=== PATIENT | female | born 1985 | race Caucasian/White ===

== ENCOUNTER 2016-07-03 10:26 | Emergency (ER) | payer MEDICAID, OTHER ==
[~2016-07-03] VITALS: Ht 157.5 cm; Wt 65.5 kg
[~2016-07-03 10:26] MED LIST: ACET325T33 PO; ACET500C5 PO; AMO500 PO; AMOX1TAB10 PO; BACTDS PO; CEPH-443 PO; CIPR500T4 PO; CLOT30CR24 TOP; DOXY100T20 PO; HYDR-3498 PO; IBUP800T25 PO; NITR-58 PO; NPH10OT LEFT EAR; NPH10OT RIGHT EAR; PHEN-537 PO
[2016-07-03 10:27] VITALS: Ht 157.5 cm; Wt 65.5 kg
[2016-07-03 10:57] LABS: URINE BLOOD (Dip) POC 1+ (NEGATIVE)
[2016-07-03] MEDS ORDERED: HYDROCODONE/APAP (5/325) TAB PO ONE (11:00)
--- NOTE | 2016-07-03 11:48 | ERD ---
ER Documentation Chief Complaint Date/Time DATE: 07/03/16 TIME: 11:46 Chief Complaint dysuria x 3 days HPI 31-year-old female complains of painful urination, and urgency for the past 2 days. She states that she has had frequent urinary tract infections in the past , the last time was approximately 5 months ago. She denies any vaginal bleeding or discharge. She denies fevers, chills, nausea or vomiting. Patient reports a history of gestational diabetes only. ROS All systems reviewed and are negative except as per history of present illness. Medications Home Meds Active Scripts Phenazopyridine Hcl* (Pyridium*) 100 Mg Tab, 100 MG PO TID Y for URINARY PAIN, # 8 TAB Prov:ROBBIN HONEYCUTT PA-C 07/03/16 Metformin* (Glucophage*) 500 Mg Tab, 500 MG PO BID, #30 TAB Prov:ROBBIN HONEYCUTT PA-C 07/03/16 Cephalexin* (Keflex*) 500 Mg Capsule, 500 MG PO TID for 7 Days, CAP Prov:ROBBIN HONEYCUTT PA-C 07/03/16 Nitrofurantoin Monohyd Macrocr* (Macrobid*) 100 Mg Capsr, 100 MG PO BID for 7 Days, CAP Prov:ROBBIN HONEYCUTT PA-C 03/12/16 Acetaminophen* (Tylenol*) 325 Mg Tablet, 2 TAB PO Q8 Y for PAIN AND OR ELEVATED TEMP, #20 TAB Prov:SHARDA CLARK PA-C 02/02/16 Amoxicillin* (Amoxicillin*) 500 Mg Cap, 500 MG PO TID for 7 Days, CAP Prov:SHARDA CLARK PA-C 02/02/16 Acetaminophen* (Tylophen*) 500 Mg Capsule, 1 CAP PO Q6H Y for PAIN AND OR ELEVATED TEMP, #30 CAP Prov:TATI SZYMANSKI PA-C 12/14/15 Neomycin/Polymyxin/Hydrocort* (Cortisporin* Otic) 10 Ml Susp, 4 DROP LEFT EAR QID for 7 Days, EA Prov:BHARATI CUELLAR PA-C 10/25/15 Amox Tr/Potassium Clavulanate (Amox Tr-K Clv 875-125 Mg Tab) 1 Tab Tablet, 1 TAB PO BID, #20 TAB Prov:BHARATI CUELLAR PA-C 10/25/15 Hydrocodone Bit-Acetaminophen* ([place]*) 5-325 Mg Tab, 1 TAB PO Q6 Y for PAIN, # 7 TAB Prov:ROBBIN HONEYCUTT PA-C 10/10/15 Sulfamethoxazole-Trimethoprim* (Bactrim* DS) 800-160 Mg Tab, 1 TAB PO BID for 5 Days, TAB Prov:ROBBIN HONEYCUTT PA-C 10/10/15 Cephalexin* (Keflex*) 500 Mg Capsule, 500 MG PO QID for 5 Days, CAP Prov:ROBBIN HONEYCUTT PA-C 10/10/15 Ciprofloxacin Hcl* (Ciprofloxacin Hcl*) 500 Mg Tablet, 500 MG PO BID for 3 Days , TAB Prov:ROBBIN HONEYCUTT PA-C 03/24/15 Phenazopyridine Hcl* (Pyridium*) 100 Mg Tab, 100 MG PO TID Y for PAIN, #8 TAB Prov:ROBBIN HONEYCUTT PA-C 03/24/15 Ibuprofen* (Motrin*) 800 Mg Tab, 800 MG PO Q6H Y for PAIN AND OR ELEVATED TEMP, #30 TAB Prov:CB RAMSEY NP 01/28/15 Doxycycline Hyclate* (Doxycycline Hyclate*) 100 Mg Tablet.dr, 100 MG PO BID for 7 Days, TAB Prov:GABI FOY NP 01/05/15 Clotrimazole* (Clotrimazole* AF) 1% - 30 Gm Cream.gm., 1 APPLIC TOP BID for 7 Days, TUB Prov:GABI FOY NP 01/05/15 Amoxicillin* (Amoxicillin*) 500 Mg Cap, 500 MG PO Q8 for 30 Days, CAP Prov:SMILEY DANGELO MD 10/26/14 Neomycin/Polymyxin/Hydrocort* (Cortisporin* Otic) 10 Ml Susp, 4 DROP RIGHT EAR QID for 7 Days, EA Prov:SMILEY DANGELO MD 10/26/14 Hydrocodone Bit-Acetaminophen* ([place]*) 5-325 Mg Tab, 1 TAB PO Q6 Y for PAIN, # 20 TAB Prov:SMILEY DANGELO MD 10/26/14 Allergies Allergies: Coded Allergies: naproxen (Unverified Allergy, Unknown, RASH, 07/03/16) PMhx/Soc History of Surgery: Yes (Removal of Ovarian Cyst) Anesthesia Reaction: No Hx Neurological Disorder: No Hx Respiratory Disorders: Yes (Asthma) Hx Cardiac Disorders: Yes (Preeclampsia x7 Years ago) Hx Psychiatric Problems: No Hx Miscellaneous Medical Probl: Yes (GESTATIONAL DIABETES) Hx Alcohol Use: No Hx Substance Use: No Hx Tobacco Use: No Smoking Status: Never smoker Physical Exam Vitals Vital Signs Date Time Temp Pulse Resp B/P Pulse Ox O2 Delivery O2 Flow Rate FiO2 07/03/16 13:17 98.2 78 18 112/67 98 Room Air 07/03/16 10:27 98.9 88 18 101/72 96 Physical Exam General: Well-developed, well-nourished. The patient appears in no acute distress. HEENT: Head is normocephalic, atraumatic. No scleral icterus. Neck: Supple. Nontender. Lungs: Clear to auscultation. Normal air movement. Heart: Regular rate and rhythm. S1 and S2 are normal. No murmurs, gallops, or rubs. Abdomen: Soft, nontender, nondistended. Bowel sounds are normoactive. Extremities: No clubbing or cyanosis. Normal pulses. Moving extremities x 4. No weakness. Neurologic: Alert and oriented 3. No focal deficits. Skin: Normal turgor. No rash or lesions. Result Diagram: 07/03/16 1151 07/03/16 1151 Results 24 hrs Laboratory Tests Test 07/03/16 10:57 07/03/16 11:37 07/03/16 11:50 07/03/16 11:51 Bedside Urine pH (LAB) 5.5 Bedside Urine Protein (LAB) 1+ Bedside Urine Glucose (UA) 0.50% Bedside Urine Ketones (LAB) Negative Bedside Urine Blood 1+ Bedside Urine Nitrite (LAB) Negative Bedside Urine Leukocyte Esterase (L Trace Bedside Glucose 399mg/dL Urine Color YELLOW Urine Clarity CLOUDY Urine pH 6.0 Urine Specific [place] 1.025 Urine Ketones NEGATIVE Urine Nitrite NEGATIVE Urine Bilirubin NEGATIVE Urine Urobilinogen 0.2 E.U./dL Urine Leukocyte Esterase 1+ Urine Microscopic RBC 2-5/HPF Urine Microscopic WBC 25-50/HPF Urine Epithelial Cells FEW Urine Bacteria FEW Urine Hemoglobin 1+ Urine Glucose >=1000% Urine Total Protein TRACE White Blood Count 10.910^3/ul Red Blood Count 5.2010^6/ul Hemoglobin 14.6g/dl Hematocrit 43.8% Mean Corpuscular Volume 84.2fl Mean Corpuscular Hemoglobin 28.1pg Mean Corpuscular Hemoglobin Concent 33.3g/dl Red Cell Distribution Width 12.5% Platelet Count 73937^3/UL Mean Platelet Volume 11.3fl Neutrophils % 73.9% Lymphocytes % 20.2% Monocytes % 4.6% Eosinophils % 0.6% Basophils % 0.4% Nucleated Red Blood Cells % 0.0/100WBC Neutrophils # 8.110^3/ul Lymphocytes # 2.210^3/ul Monocytes # 0.510^3/ul Eosinophils # 0.110^3/ul Basophils # 0.010^3/ul Nucleated Red Blood Cells # 0.010^3/ul Sodium Level 135mmol/L Potassium Level 4.3mmol/L Chloride Level 98mmol/L Carbon Dioxide Level 25mmol/L Anion Gap 16 Blood Urea Nitrogen 10mg/dl Creatinine 0.50mg/dl Glucose Level 439mg/dl Calcium Level 9.1mg/dl Current Medications Medications (Trade) Dose Ordered Sig/Isrrael Route PRN Reason Start Time Stop Time Status Last Admin Dose Admin Acetaminophen/ Hydrocodone Bitart ([place] (5/325)) 1 tab ONCE ONCE PO 07/03/16 11:00 07/03/16 11:01 DC 07/03/16 11:07 Procedures/MDM ER course: Accu-Chek was obtained, 399. Labs were obtained, patient does not have evidence of his diabetic ketoacidosis. Urine does show positive infection with many white blood cells. MDM: 31-year-old female presents with new onset of diabetes type 2, and urinary tract infection. Her POC glucose was obtained given that showed glucose in the urine dip and it was 399. Subsequently blood work was obtained, patient's lab work was unremarkable, and she was informed of all results. The case was reviewed and discussed with who agrees with the plan of care including labs, treatment, and advanced imaging as appropriate. She will be given Metformin and keflex, and has been asked to f/u with her pcp closely. Departure Diagnosis: Primary Impression: Acute UTI Additional Impression: Diabetes type 2, uncontrolled Condition: ROBBIN Hinton PA-C Jul 03, 2016 11:47
[2016-07-03 11:58] LABS: ADD SCAN DIFF NO
[2016-07-03 12:11] LABS: POTASSIUM 4.3 mmol/L (3.5-5.1)
[2016-07-03 12:14] LABS: CALCIUM 9.1 mg/dl (8.4-10.2); CREATININE 0.5 mg/dl (0.44-1.00)
[2016-07-03 12:25] LABS: ADD UMIC YES; URINE BILIRUBIN (Dip) NEGATIVE (NEGATIVE); URINE BLOOD (Dip) 1+ (NEGATIVE); URINE GLUCOSE (Dip) >=1000 % (NEGATIVE); URINE KETONES (Dip) NEGATIVE (NEGATIVE); URINE LEUKOCYTE ESTERASE (Dip) 1+ (NEGATIVE); URINE NITRITE (Dip) NEGATIVE (NEGATIVE); URINE TOTAL PROTEIN (Dip) TRACE (NEGATIVE); URINE UROBILINOGEN (Dip) 0.2 E.U./dL (0.1-1.0)
[2016-07-03 12:26] LABS: BASOPHILS % 0.4 % (0.0-2.0); EOSINOPHILS # 0.1 10^3/ul (0.0-0.5); EOSINOPHILS % 0.6 % (0.0-7.0); HEMATOCRIT 43.8 % (37.0-47.0); HEMOGLOBIN 14.6 g/dl (12.0-16.0); LYMPHOCYTES # 2.2 10^3/ul (0.8-2.9); LYMPHOCYTES % 20.2 % (15.0-51.0); MEAN CORPUSCULAR HEMOGLOBIN 28.1 pg (29.0-33.0); MEAN CORPUSCULAR HGB CONC 33.3 g/dl (32.0-37.0); MEAN CORPUSCULAR VOLUME 84.2 fl (82.0-101.0); MEAN PLATELET VOLUME 11.3 fl (7.4-10.4); MONOCYTE # 0.5 10^3/ul (0.3-0.9); MONOCYTES % 4.6 % (0.0-11.0); NEUTROPHIL # 8.1 10^3/ul (1.6-7.5); NEUTROPHILS % 73.9 % (39.0-77.0); PLATELET COUNT 333 10^3/UL (140-415); RED CELL DISTRIBUTION WIDTH 12.5 % (11.5-14.5); WHITE BLOOD COUNT 10.9 10^3/ul (4.8-10.8)
[2016-07-03 12:33] LABS: URINE COLOR YELLOW (YELLOW)
[2016-07-03] MEDS ORDERED: CEPH-443 PO (12:59)
[2016-07-03] MEDS ORDERED: PHEN-537 PO (12:59)
[2016-07-03] MEDS ORDERED: METF500T4 PO (12:59)
[2016-07-03 13:03] LABS: BACTERIA,URINE FEW
[2016-07-03 13:17] VITALS: BP 112/67; PULSE 78; RESP 18; TEMP 98.2
== END 2016-07-03 13:20 | disposition home or self-care (01) ==
LOC: FTE 10:26
DX: N39.0 Urinary tract infection, site not specified (principal); E11.9 Type 2 diabetes mellitus without complications; J45.909 Unspecified asthma, uncomplicated
CPT/HCPCS: 80048; 81001; 82962; 85025; Z7502; Z7610; 81003; 99284

== ENCOUNTER 2016-10-23 21:49 | Emergency (ER) | payer OTHER ==
[~2016-10-23] VITALS: Wt 66.5 kg
[~2016-10-23 21:49] MED LIST changes: +METF500T4 PO
[2016-10-24] MEDS ORDERED: ONDANSETRON 4 MG INJ IV STA ×2 (00:38→01:51)
[2016-10-24] MEDS ORDERED: morphine 4 MG/ML VIAL IV STA ×2 (00:38→02:08)
[2016-10-24] MEDS ORDERED: SOD CHLORIDE 0.9% 1,000 ML IV STA (00:38)
--- NOTE | 2016-10-24 00:53 | ERD ---
ER Documentation Chief Complaint Date/Time DATE: 10/24/16 TIME: 00:50 Chief Complaint Epigastric Pain since yesterday with vomiting HPI This is a 31-year-old female presents to the emergency department today complaining of abdominal pain and persistent vomiting since yesterday. She has some dysuria and some diarrhea. Denies any fevers or chills. ROS All systems reviewed and are negative except as per history of present illness. Medications Home Meds Active Scripts Acetaminophen* (Tylophen*) 500 Mg Capsule, 1 CAP PO Q6H Y for PAIN AND OR ELEVATED TEMP, #30 CAP Prov:TATI SZYMANSKI PA-C 10/24/16 Omeprazole* (Omeprazole*) 20 Mg Capsule.dr, 20 MG PO DAILY, #14 Prov:TATI SZYMANSKI PA-C 10/24/16 Electrolyte,Oral (Pedialyte) 1,000 Ml Solution, 100 ML PO Q6 Y for VOMITTING, # 1000 ML Prov:TATI SZYMANSKI PA-C 10/24/16 Ondansetron Hcl* (Zofran*) 4 Mg Tablet, 4 MG PO Q6H for NAUSEA AND/OR VOMITING, #30 TAB Prov:TATI SZYMANSKI PA-C 10/24/16 Phenazopyridine Hcl* (Pyridium*) 100 Mg Tab, 100 MG PO TID Y for URINARY PAIN, # 8 TAB Prov:ROBBIN HONEYCUTT PA-C 07/03/16 Metformin* (Glucophage*) 500 Mg Tab, 500 MG PO BID, #30 TAB Prov:ROBBIN HONEYCUTT PA-C 07/03/16 Cephalexin* (Keflex*) 500 Mg Capsule, 500 MG PO TID for 7 Days, CAP Prov:ROBBIN HONEYCUTT PA-C 07/03/16 Nitrofurantoin Monohyd Macrocr* (Macrobid*) 100 Mg Capsr, 100 MG PO BID for 7 Days, CAP Prov:ROBBIN HONEYCUTT PA-C 03/12/16 Acetaminophen* (Tylenol*) 325 Mg Tablet, 2 TAB PO Q8 Y for PAIN AND OR ELEVATED TEMP, #20 TAB Prov:SHARDA CLARK PA-C 02/02/16 Amoxicillin* (Amoxicillin*) 500 Mg Cap, 500 MG PO TID for 7 Days, CAP Prov:SHARDA CLARK PA-C 02/02/16 Acetaminophen* (Tylophen*) 500 Mg Capsule, 1 CAP PO Q6H Y for PAIN AND OR ELEVATED TEMP, #30 CAP Prov:TATI SZYMANSKI PA-C 12/14/15 Neomycin/Polymyxin/Hydrocort* (Cortisporin* Otic) 10 Ml Susp, 4 DROP LEFT EAR QID for 7 Days, EA Prov:BHARATI CUELLAR PA-C 10/25/15 Amox Tr/Potassium Clavulanate (Amox Tr-K Clv 875-125 Mg Tab) 1 Tab Tablet, 1 TAB PO BID, #20 TAB Prov:BHARATI CUELLAR PA-C 10/25/15 Hydrocodone Bit-Acetaminophen* ([place]*) 5-325 Mg Tab, 1 TAB PO Q6 Y for PAIN, # 7 TAB Prov:ROBBIN HONEYCUTT PA-C 10/10/15 Sulfamethoxazole-Trimethoprim* (Bactrim* DS) 800-160 Mg Tab, 1 TAB PO BID for 5 Days, TAB Prov:ROBBIN HONEYCUTT PA-C 10/10/15 Cephalexin* (Keflex*) 500 Mg Capsule, 500 MG PO QID for 5 Days, CAP Prov:ROBBIN HONEYCUTT PA-C 10/10/15 Ciprofloxacin Hcl* (Ciprofloxacin Hcl*) 500 Mg Tablet, 500 MG PO BID for 3 Days , TAB Prov:ROBBIN HONEYCUTT PA-C 03/24/15 Phenazopyridine Hcl* (Pyridium*) 100 Mg Tab, 100 MG PO TID Y for PAIN, #8 TAB Prov:ROBBIN HONEYCUTT PA-C 03/24/15 Ibuprofen* (Motrin*) 800 Mg Tab, 800 MG PO Q6H Y for PAIN AND OR ELEVATED TEMP, #30 TAB Prov:CB RAMSEY NP 01/28/15 Doxycycline Hyclate* (Doxycycline Hyclate*) 100 Mg Tablet.dr, 100 MG PO BID for 7 Days, TAB Prov:GABI FOY NP 01/05/15 Clotrimazole* (Clotrimazole* AF) 1% - 30 Gm Cream.gm., 1 APPLIC TOP BID for 7 Days, TUB Prov:GABI FOY NP 01/05/15 Amoxicillin* (Amoxicillin*) 500 Mg Cap, 500 MG PO Q8 for 30 Days, CAP Prov:SMILEY DANGELO MD 10/26/14 Neomycin/Polymyxin/Hydrocort* (Cortisporin* Otic) 10 Ml Susp, 4 DROP RIGHT EAR QID for 7 Days, EA Prov:SMILEY DANGELO MD 10/26/14 Hydrocodone Bit-Acetaminophen* ([place]*) 5-325 Mg Tab, 1 TAB PO Q6 Y for PAIN, # 20 TAB Prov:SMILEY DANGELO MD 10/26/14 Allergies Allergies: Coded Allergies: naproxen (Unverified Allergy, Unknown, RASH, 07/03/16) PMhx/Soc History of Surgery: Yes (Removal of Ovarian Cyst) Anesthesia Reaction: No Hx Neurological Disorder: No Hx Respiratory Disorders: Yes (Asthma) Hx Cardiac Disorders: Yes (Preeclampsia x7 Years ago) Hx Psychiatric Problems: No Hx Miscellaneous Medical Probl: Yes (GESTATIONAL DIABETES) Hx Alcohol Use: No Hx Substance Use: No Hx Tobacco Use: No Physical Exam Vitals Vital Signs Date Time Temp Pulse Resp B/P Pulse Ox O2 Delivery O2 Flow Rate FiO2 10/23/16 22:00 97.3 87 20 101/64 99 Physical Exam Const: Obese, no acute distress Head: Atraumatic Eyes: Normal Conjunctiva ENT: Normal External Ears, Nose and Mouth. Neck: Full range of motion..~ No meningismus. Resp: Clear to auscultation bilaterally Cardio: Regular rate and rhythm, no murmurs Abd: Soft, epigastric right upper quadrant tenderness, non distended. Normal bowel sounds no tenderness [place] Skin: No petechiae or rashes Back: No midline or flank tenderness Ext: No cyanosis, or edema Neur: Awake and alert Psych: Normal Mood and Affect Result Diagram: 10/24/1610410/24/16 010 Results 24 hrs Laboratory Tests Test 10/24/16 01:00 10/24/16 01:05 10/24/16 02:52 Urine Color YELLOW Urine Clarity SLIGHTLY CLOUDY Urine pH 5.0 Urine Specific [place] 1.036 Urine Ketones 2+mg/dL Urine Nitrite NEGATIVEmg/dL Urine Bilirubin NEGATIVEmg/dL Urine Urobilinogen 1+mg/dL Urine Leukocyte Esterase NEGATIVELeu/ul Urine Microscopic RBC 0/HPF Urine Microscopic WBC 2/HPF Urine Squamous Epithelial Cells FEW/HPF Urine Mucus MODERATE/HPF Urine Hemoglobin NEGATIVEmg/dL Urine Glucose 3+mg/dL Urine Total Protein 1+mg/dl White Blood Count 10.310^3/ul Red Blood Count 4.9910^6/ul Hemoglobin 14.3g/dl Hematocrit 41.2% Mean Corpuscular Volume 82.6fl Mean Corpuscular Hemoglobin 28.7pg Mean Corpuscular Hemoglobin Concent 34.7g/dl Red Cell Distribution Width 12.4% Platelet Count 25388^3/UL Mean Platelet Volume 11.2fl Neutrophils % 73.6% Lymphocytes % 21.6% Monocytes % 4.1% Eosinophils % 0.2% Basophils % 0.2% Nucleated Red Blood Cells % 0.0/100WBC Neutrophils # 7.610^3/ul Lymphocytes # 2.210^3/ul Monocytes # 0.410^3/ul Eosinophils # 0.010^3/ul Basophils # 0.010^3/ul Nucleated Red Blood Cells # 0.010^3/ul Sodium Level 142mmol/L Potassium Level 3.7mmol/L Chloride Level 98mmol/L Carbon Dioxide Level 26mmol/L Anion Gap 22 Blood Urea Nitrogen 9mg/dl Creatinine 0.51mg/dl Glucose Level 270mg/dl Calcium Level 9.5mg/dl Total Bilirubin 0.6mg/dl Direct Bilirubin 0.00mg/dl Indirect Bilirubin 0.6mg/dl Aspartate Amino Transf (AST/SGOT) 32IU/L Alanine Aminotransferase (ALT/SGPT) 58IU/L Alkaline Phosphatase 136IU/L Total Protein 8.3g/dl Albumin 4.4g/dl Globulin 3.90g/dl Albumin/Globulin Ratio 1.12 Lipase 74U/L Serum HCG, Qualitative NEGATIVE Bedside Glucose 209mg/dL Current Medications Medications (Trade) Dose Ordered Sig/Isrrael Route PRN Reason Start Time Stop Time Status Last Admin Dose Admin Sodium Chloride (NS) 1,000 ml @ 1,000 mls/hr Q1H STAT IV 10/24/16 00:38 10/24/16 01:37 DC 10/24/16 01:13 Morphine Sulfate (morphine) 4 mg ONCE STAT IV 10/24/16 00:38 10/24/16 00:41 DC 10/24/16 01:13 Ondansetron HCl (Zofran Inj) 4 mg ONCE STAT IV 10/24/16 00:38 10/24/16 00:41 DC 10/24/16 01:13 Famotidine (Pepcid) 20 mg ONCE ONCE PO 10/24/16 02:00 10/24/16 02:01 DC 10/24/16 02:11 Ondansetron HCl (Zofran Inj) 4 mg ONCE STAT IV 10/24/16 01:51 10/24/16 01:52 DC 10/24/16 02:11 Morphine Sulfate 4 mg 4 mg ONCE STAT IV 10/24/16 02:08 10/24/16 02:09 DC 10/24/16 02:11 Sodium Chloride (NS) 1,000 ml @ 1,000 mls/hr Q1H ONCE IV 10/24/16 03:00 10/24/16 03:59 DC 10/24/16 03:07 Pantoprazole (Protonix Tab) 40 mg ONCE ONCE PO 10/24/16 03:00 10/24/16 03:01 DC 10/24/16 03:06 Metoclopramide HCl (Reglan) 10 mg ONCE ONCE IV 10/24/16 04:00 10/24/16 04:01 DC 10/24/16 04:19 DIAGNOSTIC IMAGING REPORT Patient: SERAFIN SCHRADER : 1985 Age: 31 Sex: F MR #: [id number] DOS: 10/24/16 0000 Ordering MD: TATI SZYMANSKI PA-C Location: [facility] Room/Bed: PROCEDURE: ULTRASOUND LIMITED ABDOMEN CLINICAL INDICATION: 31-year-old female with abdominal pain. TECHNIQUE: Multiple sonographic of the right upper quadrant of the abdomen were obtained. The images were reviewed on a PACS workstation. COMPARISON: CT abdomen/pelvis January 28, 2015. FINDINGS: The pancreas is partially visualized and is otherwise without abnormal echogenicity. The liver displays diffuse increase echogenicity consistent with fatty infiltration. The liver measures 18.1 cm in length. No evidence of intrahepatic biliary ductal dilatation is seen. The portal and hepatic veins are unremarkable. The gallbladder demonstrates no wall thickening, sludge, nor stones. No pericholecystic fluid is seen. The common bile duct measures 2.5 mm and is not dilated. The right kidney displays normal echogenicity. The right kidney measures 11.5 cm in maximal length. No caliectasis or hydronephrosis is seen. There is an echogenic focus within the mid right kidney measuring 6 mm with questionable shadowing. No free fluid is seen. IMPRESSION: 1. Hepatic steatosis. 2. Questionable nonobstructing 6 mm right mid renal calculus. .Ernie Hogue MD, MD Date Time Electronically viewed and signed by .Ernie Hogue MD, MD on 10/24/2016 01:53 .M/ CC: TATI SZYMANSKI PA-C DIAGNOSTIC IMAGING REPORT Patient: SERAFIN SCHRADER : 1985 Age: 31 Sex: F MR #: [id number] DOS: 10/24/16 0203 Ordering MD: TATI SZYMANSKI PA-C Location: [facility] Room/Bed: PROCEDURE: CT ABDOMEN/PELVIS WITHOUT CONTRAST CLINICAL INDICATION: 31-year-old female with abdominal pain. TECHNIQUE: The study was performed utilizing a [employer] VCT 64-slice CT scanner. Direct axial sections were obtained through the abdomen and pelvis without the use of intravenous contrast material. Sagittal and coronal reformations were obtained. One or more of the following dose reduction techniques were utilized: automated exposure control, adjustment of the mA and/ or kV according to patient's size or use of iterative reconstruction technique. The images were reviewed on a PACS workstation. CTD/vol = 9.8 mGy; Total Exam DLP = 587.9 mGy-cm. COMPARISON: Right upper quadrant ultrasound October 24, 2016; CT abdomen/ pelvis January 28, 2015. FINDINGS: The lung bases are unremarkable. There is no evidence for significant pleural effusion. The liver has a normal size and contour without focal areas of abnormal density. No intrahepatic nor extrahepatic biliary ductal dilatation is seen. The gallbladder demonstrates no wall thickening nor pericholecystic fluid. No biliary stones are evident. The pancreas is without areas of abnormal attenuation. The spleen is identified and has a normal size without abnormal density. The adrenal glands are unremarkable. The kidneys are without abnormal density. No hydroureteronephrosis nor nephroureterolithiasis is evident. The urinary bladder contains urine. There is mild retained stool within the colon without obstruction. The appendix is visualized and is without abnormal thickening or surrounding inflammatory reaction. The uterus is unremarkable. There is no significant free fluid. The aortoiliac vessels are without aneurysmal dilatation. The osseous structures are intact. IMPRESSION: 1. No CT evidence for obstructive uropathy or renal calculi. 2. Mild retained stool within the colon without obstruction. 3. No CT evidence for appendicitis. .Ernie Hogue MD, MD Date Time Electronically viewed and signed by .Ernie Hogue MD, MD on 10/24/2016 02:36 .M/ CC: TATI SZYMANSKI PA-C Procedures/[facility] This a 31-year-old female who presents the emergency department today complaining of abdominal pain and vomiting that started yesterday. Upon review of patient's medical records patient was seen here in June had a significantly elevated blood glucose over 400. Patient states that she did follow-up with a primary care doctor and was told to go get regular blood work however she has not done this because she states she is homeless and has too much going on. States she is currently living in a intermediate with her son and does feel safe there. On physical exam patient had epigastric and right upper quadrant tenderness and therefore did obtain laboratory work as well as imaging Laboratory workup shows no elevated white blood cell count. She is not anemic. Platelets are within normal limits. Electrolytes are within normal limits. Bicarb is within normal limit glucose is elevated at 270. Liver enzymes are within normal limits. She is not in DKA. UA is negative for infection. There are 2+ ketones. test is negative Right upper quadrant ultrasound showed hepatic steatosis and a questionable nonobstructing stone millimeter right mid renal calculus. There is no gallbladder wall thickening, sludge or stones. There is no pericholecystic fluid. She was given morphine, Zofran and IV fluids here in the emergency department patient continued complaint nausea and pain and therefore I did obtain a CT abdomen pelvis noncontrast CT abdomen pelvis noncontrast shows no CT evidence for obstructive uropathy or renal calculi. Mild retained stool within the colon without obstruction. No CT evidence for appendicitis. Discussed the auditory and imaging findings with Dr. Lindquist and he indicated that it is possible the patient has gastroparesis given her history of diabetes. Patient was given 8 mg of morphine, Pepcid, Zofran here in the emergency department. Pain was well controlled. She did have some persistent nausea and she was therefore given more Zofran and Reglan and omeprazole. She was also given 2 L of fluids. Patient tolerated p.o. challenge prior to discharge. No evidence to suggest acute surgical abdomen. Patient symptoms at this time is consistent with abdominal pain and vomiting possibly related to gastroparesis. Lower suspicion for viral infection at this time. Patient was given a prescription for omeprazole, Tylenol, Zofran, Pedialyte. At this time the patient is stable for discharge and outpatient management. Patient should follow up with their PCP in the next 1-2 days. They may return to the emergency department sooner for any persistent or worsening of symptoms. Patient understood and agreed with the plan. Departure Diagnosis: Primary Impression: Abdominal pain Abdominal location: generalized Qualified Code: R10.84 - Generalized abdominal pain Additional Impression: Elevated blood sugar Condition: TATI Yoder PA-C Oct 24, 2016 00:53
[2016-10-24 01:21] LABS: BASOPHILS % 0.2 % (0.0-2.0); EOSINOPHILS % 0.2 % (0.0-7.0); HEMATOCRIT 41.2 % (37.0-47.0); HEMOGLOBIN 14.3 g/dl (12.0-16.0); LYMPHOCYTES # 2.2 10^3/ul (0.8-2.9); LYMPHOCYTES % 21.6 % (15.0-51.0); MEAN CORPUSCULAR HEMOGLOBIN 28.7 pg (29.0-33.0); MEAN CORPUSCULAR HGB CONC 34.7 g/dl (32.0-37.0); MEAN CORPUSCULAR VOLUME 82.6 fl (82.0-101.0); MEAN PLATELET VOLUME 11.2 fl (7.4-10.4); MONOCYTE # 0.4 10^3/ul (0.3-0.9); MONOCYTES % 4.1 % (0.0-11.0); NEUTROPHIL # 7.6 10^3/ul (1.6-7.5); NEUTROPHILS % 73.6 % (39.0-77.0); PLATELET COUNT 372 10^3/UL (140-415); RED BLOOD COUNT 4.99 10^6/ul (4.20-5.40); RED CELL DISTRIBUTION WIDTH 12.4 % (11.5-14.5); WHITE BLOOD COUNT 10.3 10^3/ul (4.8-10.8)
[2016-10-24 01:35] LABS: ADD UMIC YES; UR ASCORBIC ACID NEGATIVE (NEGATIVE); UR BILIRUBIN (Dip) NEGATIVE (NEGATIVE); UR BLOOD (Dip) NEGATIVE (NEGATIVE); UR CLARITY SLIGHTLY CLOUDY (CLEAR); UR COLOR YELLOW (YELLOW); UR GLUCOSE (Dip) 3+ mg/dL (NEGATIVE); UR KETONES (Dip) 2+ mg/dL (NEGATIVE); UR LEUKOCYTE ESTERASE (Dip) NEGATIVE Leu/ul (NEGATIVE); UR MUCUS MODERATE /HPF (NONE SEEN); UR NITRITE (Dip) NEGATIVE (NEGATIVE); UR RBC 0 /HPF (0-5); UR SPECIFIC GRAVITY (Dip) 1.036 (1.003-1.030); UR SQUAMOUS EPITHELIAL CELL FEW /HPF (FEW); UR TOTAL PROTEIN (Dip) 1+ mg/dl (NEGATIVE); UR UROBILINOGEN (Dip) 1+ mg/dL (NEGATIVE)
[2016-10-24 01:38] LABS: ALBUMIN 4.4 g/dl (3.3-4.9); ALBUMIN/GLOBULIN RATIO 1.12; BILIRUBIN,INDIRECT 0.6 mg/dl (0-1.1); BILIRUBIN,TOTAL 0.6 mg/dl (0.2-1.3); CALCIUM 9.5 mg/dl (8.4-10.2); CREATININE 0.51 mg/dl (0.44-1.00); POTASSIUM 3.7 mmol/L (3.5-5.1); TOTAL PROTEIN 8.3 g/dl (6.1-8.1)
--- NOTE | 2016-10-24 01:53 | RADRPT ---
PROCEDURE: ULTRASOUND LIMITED ABDOMEN CLINICAL INDICATION: 31-year-old female with abdominal pain. TECHNIQUE: Multiple sonographic of the right upper quadrant of the abdomen were obtained. The imag es were reviewed on a PACS workstation. COMPARISON: CT abdomen/pelvis January 28, 2015. FINDINGS: The pancreas is partially visualized and is otherwise without abnormal echogenicity. The liver displays diffuse increase echogenicity consistent with fatty infiltration. The liver measu res 18.1 cm in length. No evidence of intrahepatic biliary ductal dilatation is seen. The portal an d hepatic veins are unremarkable. The gallbladder demonstrates no wall thickening, sludge, nor stones. No pericholecystic fluid is see n. The common bile duct measures 2.5 mm and is not dilated. The right kidney displays normal echogenicity. The right kidney measures 11.5 cm in maximal length. No caliectasis or hydronephrosis is seen. There is an echogenic focus within the mid right kidney me asuring 6 mm with questionable shadowing. No free fluid is seen. IMPRESSION: 1. Hepatic steatosis. 2. Questionable nonobstructing 6 mm right mid renal calculus. .Ernie Hogue MD, Date Time Electronically viewed and signed by .Ernie Hogue MD, on 10/24/2016 01:53 .M/
[2016-10-24] MEDS ORDERED: FAMOTIDINE 20 MG TAB PO ONE (02:00)
--- NOTE | 2016-10-24 02:36 | RADRPT ---
PROCEDURE: CT ABDOMEN/PELVIS WITHOUT CONTRAST CLINICAL INDICATION: 31-year-old female with abdominal pain. TECHNIQUE: The study was performed utilizing a GE Crittercismpeed VCT 64-slice CT scanner. Direct axia l sections were obtained through the abdomen and pelvis without the use of intravenous contrast mate rial. Sagittal and coronal reformations were obtained. One or more of the following dose reduction t echniques were utilized: automated exposure control, adjustment of the mA and/or kV according to pat ient's size or use of iterative reconstruction technique. The images were reviewed on a PACS workst [employer]. CTD/vol = 9.8 mGy; Total Exam DLP = 587.9 mGy-cm. COMPARISON: Right upper quadrant ultrasound October 24, 2016; CT abdomen/pelvis January 28, 2015. FINDINGS: The lung bases are unremarkable. There is no evidence for significant pleural effusion. The liver has a normal size and contour without focal areas of abnormal density. No intrahepatic nor extrahepa tic biliary ductal dilatation is seen. The gallbladder demonstrates no wall thickening nor perichole cystic fluid. No biliary stones are evident. The pancreas is without areas of abnormal attenuation. The spleen is identified and has a normal size without abnormal density. The adrenal glands are unr emarkable. The kidneys are without abnormal density. No hydroureteronephrosis nor nephroureterolithi asis is evident. The urinary bladder contains urine. There is mild retained stool within the colon w ithout obstruction. The appendix is visualized and is without abnormal thickening or surrounding inf lammatory reaction. The uterus is unremarkable. There is no significant free fluid. The aortoiliac vessels are without aneurysmal dilatation. The osseous structures are intact. IMPRESSION: 1. No CT evidence for obstructive uropathy or renal calculi. 2. Mild retained stool within the colon without obstruction. 3. No CT evidence for appendicitis. .Ernie Hogue MD, Date Time Electronically viewed and signed by .Ernie Hogue MD, on 10/24/2016 02:36 .Eric
[2016-10-24] MEDS ORDERED: SOD CHLORIDE 0.9% 1,000 ML IV ONE (03:00)
[2016-10-24] MEDS ORDERED: PANTOPRAZOLE (EC) 40 MG TAB PO ONE (03:00)
[2016-10-24] MEDS ORDERED: METOCLOPRAMIDE 10 MG INJ IV ONE (04:00)
[2016-10-24] MEDS ORDERED: ELEC100080 PO (04:57)
[2016-10-24] MEDS ORDERED: ONDA4TAB8 PO (04:57)
[2016-10-24] MEDS ORDERED: ACET500C5 PO (04:58)
[2016-10-24] MEDS ORDERED: OMEP20CA16 PO (04:58)
== END 2016-10-24 05:11 | disposition home or self-care (01) ==
LOC: FTE 21:49
DX: R10.84 Generalized abdominal pain (principal); J45.909 Unspecified asthma, uncomplicated; R73.9 Hyperglycemia, unspecified; R11.10 Vomiting, unspecified
CPT/HCPCS: 36415; 74176; 76705; 80053; 81001; 82962; 83690; 84703; 85025; 96374; 96375; 96376; J2270; J2405; J2765; J7030; Z7502; Z7610

== ENCOUNTER 2016-11-02 20:34 | Emergency (ER) | payer OTHER ==
[~2016-11-02] VITALS: Ht 157.5 cm; Wt 67.5 kg
[~2016-11-02 20:34] MED LIST changes: -AMO500 PO; +AMOX500C2 PO; +ELEC100080 PO; +OMEP20CA16 PO; +ONDA4TAB8 PO
[2016-11-02 20:39] VITALS: Ht 157.5 cm; Wt 67.5 kg
[2016-11-02] MEDS ORDERED: ONDANSETRON 4 MG INJ IV STA (21:02)
[2016-11-02] MEDS ORDERED: SOD CHLORIDE 0.9% 1,000 ML IV STA (21:02)
[2016-11-02 21:38] LABS: URINE BLOOD (Dip) POC Trace-intact (NEGATIVE)
[2016-11-02 22:16] LABS: BASOPHILS % 0.4 % (0.0-2.0); EOSINOPHILS % 0.6 % (0.0-7.0); HEMATOCRIT 40.4 % (37.0-47.0); HEMOGLOBIN 13.9 g/dl (12.0-16.0); LYMPHOCYTES # 2.5 10^3/ul (0.8-2.9); MEAN CORPUSCULAR HEMOGLOBIN 28.6 pg (29.0-33.0); MEAN CORPUSCULAR HGB CONC 34.4 g/dl (32.0-37.0); MEAN CORPUSCULAR VOLUME 83.1 fl (82.0-101.0); MEAN PLATELET VOLUME 11.5 fl (7.4-10.4); MONOCYTE # 0.5 10^3/ul (0.3-0.9); NEUTROPHILS % 53.9 % (39.0-77.0); PLATELET COUNT 288 10^3/UL (140-415); RED BLOOD COUNT 4.86 10^6/ul (4.20-5.40); RED CELL DISTRIBUTION WIDTH 12.7 % (11.5-14.5); WHITE BLOOD COUNT 6.8 10^3/ul (4.8-10.8)
[2016-11-02] MEDS ORDERED: FAMOTIDINE 20 MG INJ IV ONE (22:30)
[2016-11-02] MEDS ORDERED: LIDOCAINE/MYLANTA 40 ML BTL PO ONE (22:30)
[2016-11-02 22:31] LABS: ALBUMIN/GLOBULIN RATIO 1.25; BILIRUBIN,INDIRECT 0.2 mg/dl (0-1.1); BILIRUBIN,TOTAL 0.2 mg/dl (0.2-1.3); CALCIUM 9.3 mg/dl (8.4-10.2); CREATININE 0.54 mg/dl (0.44-1.00); POTASSIUM 3.8 mmol/L (3.5-5.1); TOTAL PROTEIN 7.2 g/dl (6.1-8.1)
[2016-11-02] MEDS ORDERED: INSULIN LISPRO 100 UNIT/ML VIAL SC STA (22:55)
[2016-11-02] MEDS ORDERED: ONDA4TAB8 PO (23:10)
[2016-11-02] MEDS ORDERED: FAMO-96 PO (23:10)
[2016-11-03 00:25] VITALS: TEMP 98.4
[2016-11-03 01:20] VITALS: BP 94/54; PULSE 75; RESP 20
--- NOTE | 2016-11-06 16:43 | ERD ---
ER Documentation Chief Complaint Date/Time DATE: 11/06/16 TIME: 16:30 Chief Complaint abd pain, n/v/d since last night. Feeling dizzy this am, +room spinning HPI This is a 31 year old female presenting to ER for epigastric abdominal pain, nausea, vomiting and diarrhea x 2 days. Patient states pain is in epigastric region and does not radiate. Rates pain 8/10 without any relieving or aggravating factors. Patient has had 4-5 episodes of non bloody, non bilious emesis today. Multiple episodes of loose stools. No melena or black, tarry stools. No fevers or chills. No recent travel outside the country. LMP 1 month ago. Did not take any medications for this. Patient states she is feeling dizzy today. No headache or recent head trauma. No weakness or fatigue. ROS All systems reviewed and are negative except as per history of present illness. Medications Home Meds Active Scripts Famotidine* (Pepcid*) 20 Mg Tablet, 20 MG PO BID for 4 Days, TAB Prov:HIRAM GOMEZ NP 11/02/16 Ondansetron Hcl* (Zofran*) 4 Mg Tablet, 4 MG PO Q6H for NAUSEA AND/OR VOMITING, #10 TAB Prov:HIRAM GOMEZ NP 11/02/16 Acetaminophen* (Tylophen*) 500 Mg Capsule, 1 CAP PO Q6H Y for PAIN AND OR ELEVATED TEMP, #30 CAP Prov:TATI SZYMANSKI PA-C 10/24/16 Omeprazole* (Omeprazole*) 20 Mg Capsule., 20 MG PO DAILY, #14 Prov:TATI SZYMANSKI PA-C 10/24/16 Electrolyte,Oral (Pedialyte) 1,000 Ml Solution, 100 ML PO Q6 Y for VOMITTING, # 1000 ML Prov:TATI SZYMANSKI PA-C 10/24/16 Ondansetron Hcl* (Zofran*) 4 Mg Tablet, 4 MG PO Q6H for NAUSEA AND/OR VOMITING, #30 TAB Prov:TATI SZYMANSKI PA-C 10/24/16 Phenazopyridine Hcl* (Pyridium*) 100 Mg Tab, 100 MG PO TID Y for URINARY PAIN, # 8 TAB Prov:ROBBIN HONEYCUTT PA-C 07/03/16 Metformin* (Glucophage*) 500 Mg Tab, 500 MG PO BID, #30 TAB Prov:ROBBIN HONEYCUTT PA-C 07/03/16 Cephalexin* (Keflex*) 500 Mg Capsule, 500 MG PO TID for 7 Days, CAP Prov:ROBBIN HONEYCUTT PA-C 07/03/16 Nitrofurantoin Monohyd Macrocr* (Macrobid*) 100 Mg Capsr, 100 MG PO BID for 7 Days, CAP Prov:ROBBIN HONEYCTUT PA-C 03/12/16 Acetaminophen* (Tylenol*) 325 Mg Tablet, 2 TAB PO Q8 Y for PAIN AND OR ELEVATED TEMP, #20 TAB Prov:SHARDA CLARK PA-C 02/02/16 Amoxicillin* (Amoxicillin*) 500 Mg Cap, 500 MG PO TID for 7 Days, CAP Prov:SHARDA CLARK PA-C 02/02/16 Acetaminophen* (Tylophen*) 500 Mg Capsule, 1 CAP PO Q6H Y for PAIN AND OR ELEVATED TEMP, #30 CAP Prov:TATI SZYMANSKI PA-C 12/14/15 Neomycin/Polymyxin/Hydrocort* (Cortisporin* Otic) 10 Ml Susp, 4 DROP LEFT EAR QID for 7 Days, EA Prov:BHARATI CUELLAR PA-C 10/25/15 Amox Tr/Potassium Clavulanate (Amox Tr-K Clv 875-125 Mg Tab) 1 Tab Tablet, 1 TAB PO BID, #20 TAB Prov:BHARATI CUELLAR PA-C 10/25/15 Hydrocodone Bit-Acetaminophen* ([place]*) 5-325 Mg Tab, 1 TAB PO Q6 Y for PAIN, # 7 TAB Prov:ROBBIN HONEYCUTT PA-C 10/10/15 Sulfamethoxazole-Trimethoprim* (Bactrim* DS) 800-160 Mg Tab, 1 TAB PO BID for 5 Days, TAB Prov:ROBBIN HONEYCUTT PA-C 10/10/15 Cephalexin* (Keflex*) 500 Mg Capsule, 500 MG PO QID for 5 Days, CAP Prov:ROBBIN HONEYCUTT PA-C 10/10/15 Ciprofloxacin Hcl* (Ciprofloxacin Hcl*) 500 Mg Tablet, 500 MG PO BID for 3 Days , TAB Prov:ROBBIN HONEYCUTT PA-C 03/24/15 Phenazopyridine Hcl* (Pyridium*) 100 Mg Tab, 100 MG PO TID Y for PAIN, #8 TAB Prov:ROBBIN HONEYCUTT PA-C 03/24/15 Ibuprofen* (Motrin*) 800 Mg Tab, 800 MG PO Q6H Y for PAIN AND OR ELEVATED TEMP, #30 TAB Prov:CB RAMSEY NP 01/28/15 Doxycycline Hyclate* (Doxycycline Hyclate*) 100 Mg Tablet.dr, 100 MG PO BID for 7 Days, TAB Prov:GABI FOY NP 01/05/15 Clotrimazole* (Clotrimazole* AF) 1% - 30 Gm Cream.gm., 1 APPLIC TOP BID for 7 Days, TUB Prov:GABI FOY NP 01/05/15 Amoxicillin* (Amoxicillin*) 500 Mg Cap, 500 MG PO Q8 for 30 Days, CAP Prov:SMILEY DANGELO MD 10/26/14 Neomycin/Polymyxin/Hydrocort* (Cortisporin* Otic) 10 Ml Susp, 4 DROP RIGHT EAR QID for 7 Days, EA Prov:SMILEY DANGELO MD 10/26/14 Hydrocodone Bit-Acetaminophen* ([place]*) 5-325 Mg Tab, 1 TAB PO Q6 Y for PAIN, # 20 TAB Prov:SMILEY DANGELO MD 10/26/14 Allergies Allergies: Coded Allergies: naproxen (Unverified Allergy, Unknown, RASH, 07/03/16) PMhx/Soc History of Surgery: Yes (Removal of Ovarian Cyst) Anesthesia Reaction: No Hx Neurological Disorder: No Hx Respiratory Disorders: Yes (Asthma) Hx Cardiac Disorders: Yes (Preeclampsia x7 Years ago) Hx Psychiatric Problems: No Hx Miscellaneous Medical Probl: Yes (GESTATIONAL DIABETES) Hx Alcohol Use: No Hx Substance Use: No Hx Tobacco Use: No Smoking Status: Never smoker Physical Exam Vitals Vital Signs Date Time Temp Pulse Resp B/P Pulse Ox O2 Delivery O2 Flow Rate FiO2 11/03/16 01:20 75 20 94/54 98 Room Air 11/03/16 00:25 98.4 18 99 11/02/16 20:39 96.8 83 18 99 Physical Exam Const: alert, non ill appearing, NAD Head: Atraumatic Eyes: Normal Conjunctiva ENT: Normal External Ears, Nose and Mouth. Neck: Full range of motion..~ No meningismus. Resp: Clear to auscultation bilaterally. no wheezing, rhonchi or crackles. Cardio: Regular rate and rhythm, no murmurs Abd: Soft, non tender, non distended. Normal bowel sounds. Negative murphys sign. NEgative rebound tenderness. Negative McBurney point tenderness. Skin: No petechiae or rashes Back: No midline or flank tenderness Ext: No cyanosis, or edema Neur: Awake and alert Psych: Normal Mood and Affect Result Diagram: 11/02/16215811/02/162158 Results 24 hrs Laboratory Tests Test 11/02/16 21:43 11/02/16 21:59 11/02/16 23:47 11/03/16 01:02 Bedside Urine pH (LAB) 6.5 Bedside Urine Protein (LAB) Negative Bedside Urine Glucose (UA) 0.50% Bedside Urine Ketones (LAB) Negative Bedside Urine Blood Trace-intact Bedside Urine Nitrite (LAB) Negative Bedside Urine Leukocyte Esterase (L Negative White Blood Count 6.810^3/ul Red Blood Count 4.8610^6/ul Hemoglobin 13.9g/dl Hematocrit 40.4% Mean Corpuscular Volume 83.1fl Mean Corpuscular Hemoglobin 28.6pg Mean Corpuscular Hemoglobin Concent 34.4g/dl Red Cell Distribution Width 12.7% Platelet Count 53536^3/UL Mean Platelet Volume 11.5fl Neutrophils % 53.9% Lymphocytes % 37.0% Monocytes % 8.0% Eosinophils % 0.6% Basophils % 0.4% Nucleated Red Blood Cells % 0.0/100WBC Neutrophils # (Manual) 410^3/ul Lymphocytes # 2.510^3/ul Monocytes # 0.510^3/ul Eosinophils # 0.010^3/ul Basophils # 0.010^3/ul Nucleated Red Blood Cells # 0.010^3/ul Sodium Level 134mmol/L Potassium Level 3.8mmol/L Chloride Level 97mmol/L Carbon Dioxide Level 27mmol/L Anion Gap 14 Blood Urea Nitrogen 9mg/dl Creatinine 0.54mg/dl Glucose Level 390mg/dl Calcium Level 9.3mg/dl Total Bilirubin 0.2mg/dl Direct Bilirubin 0.00mg/dl Indirect Bilirubin 0.2mg/dl Aspartate Amino Transf (AST/SGOT) 24IU/L Alanine Aminotransferase (ALT/SGPT) 45IU/L Alkaline Phosphatase 111IU/L Total Protein 7.2g/dl Albumin 4.0g/dl Globulin 3.20g/dl Albumin/Globulin Ratio 1.25 Lipase 107U/L Bedside Glucose 348mg/dL 316mg/dL Current Medications Medications (Trade) Dose Ordered Sig/Isrrael Route PRN Reason Start Time Stop Time Status Last Admin Dose Admin Sodium Chloride (NS) 1,000 ml @ 1,000 mls/hr Q1H STAT IV 11/02/16 21:02 11/02/16 22:01 DC 11/02/16 22:02 Ondansetron HCl (Zofran Inj) 4 mg ONCE STAT IV 11/02/16 21:02 11/02/16 21:04 DC 11/02/16 22:02 Famotidine (Pepcid Iv) 20 mg ONCE ONCE IV 11/02/16 22:30 11/02/16 22:31 DC 11/02/16 22:26 Miscellaneous Medication (Gi Cocktail (2)) 40 ml ONCE ONCE PO 11/02/16 22:30 11/02/16 22:31 DC 11/02/16 22:26 Insulin Human Lispro (Humalog) 5 unit ONCE STAT SC 11/02/16 22:55 11/02/16 22:56 DC 11/03/16 00:01 Procedures/MDM MDM: 31 year old female presents to ER with epigastric abdominal pain, nausea, vomiting, diarrhea and dizziness x 2 days. Physical exam is unremarkable. Patient is extremely well appearing. Afebrile and stable vitals upon arrival. Patient recently had gallbladder US done 9 days ago that was reviewed by radiologist as Hepatic steatosis. Patient also had CT abdomen and pelvis done 9 days ago that was reviewed by radiologist as no acute pathology. Labs drawn today and reveal no significant anemia, infection or electrolyte imbalance. Liver enzymes are normal. Bilirubin is normal. Glucose is 390 and patient given 5 units Humalog Subcutaneously. Urine dip is negative for infection. Urine is negative. Upon recheck of blood glucose, glucose is trending down. IV access obtained and patient given 1L IV fluid bolus, Zofran 4mg IV, Pepcid 20mg IV and GI cocktail. Upon reassessment, patient states she is feeling much better. Low suspicion for cholecystitis, pancreatitis or bowel obstruction. Patient likely has viral gastroenteritis. Patient is appropriate for outpatient management and instructed to follow up with PCP in the next 2-3 days for reassessment. Patient given prescription for Pepcid and Zofran. Return to ED for any new or worsening symptoms. Patient verbalizes understanding. All questions answered at discharge. Departure Diagnosis: Primary Impression: Viral gastroenteritis Condition: Stable Patient Instructions: DIABETES, General Info, Gastroenteritis, Viral (6Y-Adult) , Hyperglycemia, New Onset (Diabetes Suspected) Referrals: [facility] YOU HAVE RECEIVED A MEDICAL SCREENING EXAM AND THE RESULTS INDICATE THAT YOU DO NOT HAVE A CONDITION THAT REQUIRES URGENT TREATMENT IN THE EMERGENCY DEPARTMENT. FURTHER EVALUATION AND TREATMENT OF YOUR CONDITION CAN WAIT UNTIL YOU ARE SEEN IN YOUR DOCTORS OFFICE WITHIN THE NEXT 1-2 DAYS. IT IS YOUR RESPONSIBILITY TO MAKE AN APPOINTMENT FOR FOLOW-UP CARE. IF YOU HAVE A PRIMARY DOCTOR --you should call your primary doctor and schedule an appointment IF YOU DO NOT HAVE A PRIMARY DOCTOR YOU CAN CALL OUR PHYSICIAN REFERRAL HOTLINE AT IF YOU CAN NOT AFFORD TO SEE A PHYSICIAN YOU CAN CHOSE FROM THE FOLLOWING [facility] [address] [facility]. [facility] [address] [facility] [address] [facility] [facility] [address] [facility] [address] [facility]. [facility]. [address] [facility]. [facility] YOU HAVE RECEIVED A MEDICAL SCREENING EXAM AND THE RESULTS INDICATE THAT YOU DO NOT HAVE A CONDITION THAT REQUIRES URGENT TREATMENT IN THE EMERGENCY DEPARTMENT. FURTHER EVALUATION AND TREATMENT OF YOUR CONDITION CAN WAIT UNTIL YOU ARE SEEN IN YOUR DOCTORS OFFICE WITHIN THE NEXT 1-2 DAYS. IT IS YOUR RESPONSIBILITY TO MAKE AN APPOINTMENT FOR FOLOW-UP CARE. IF YOU HAVE A PRIMARY DOCTOR --you should call your primary doctor and schedule and appointment IF YOU DO NOT HAVE A PRIMARY DOCTOR YOU CAN CALL OUR PHYSICIAN REFERRAL HOTLINE AT . IF YOU CAN NOT AFFORD TO SEE A PHYSICIAN YOU CAN CHOSE FROM THE FOLLOWING [facility] INSTITUTIONS: [facility] [address] [place] [address] [facility] [address] [place] [address] [facility] [address] [place] [address] Additional Instructions: Call your primary care doctor TOMORROW for an appointment during the next 2-3 days.See the doctor sooner or return here if your condition worsens before your appointment time. Return to ED for any high fever, chest pain, difficulty breathing, shortness breath, wheezing, vomiting, diarrhea, abdominal pain or any new or worsening symptoms. HIRAM GOMEZ NP Nov 06, 2016 16:34
== END 2016-11-03 01:21 | disposition home or self-care (01) ==
LOC: FTE 20:34
DX: A08.4 Viral intestinal infection, unspecified (principal); J45.909 Unspecified asthma, uncomplicated; Z79.84 Long term (current) use of oral hypoglycemic drugs
CPT/HCPCS: 36415; 80053; 81003; 82962; 83690; 85025; 96372; 96374; 96375; J1815; J2405; J7030; Z7502; Z7610

== ENCOUNTER 2016-11-30 23:19 | Emergency (ER) | payer OTHER ==
[~2016-11-30] VITALS: Ht 160 cm; Wt 67.5 kg
[~2016-11-30 23:19] MED LIST changes: +FAMO-96 PO
[2016-11-30 23:32] VITALS: Ht 160 cm; Wt 67.5 kg
[2016-12-01] MEDS ORDERED: MECLIZINE 12.5 MG TAB PO ONE (03:00)
--- NOTE | 2016-12-01 03:28 | ERD ---
ER Documentation Chief Complaint Date/Time DATE: 12/01/16 TIME: 03:26 Chief Complaint low back pain and dizziness for a week HPI 31-year-old female presents to emergency department for multiple complaints. Patient's complaining of bilateral lower back pain that started months now, worse in the last week. Patient described the pain as sharp pain, 6/10 scale, is worse upon movement.Patient also feels dizziness, describes it as a spinning sensation on sudden movement. Patient denies any ear pain. Patient denies any blurry vision, changes in balance or memory. Patient denies any hematuria or dysuria. Patient is diabetic. Patient denies any numbness or tingling. ROS All systems reviewed and are negative except as per history of present illness. Medications Home Meds Active Scripts Famotidine* (Pepcid*) 20 Mg Tablet, 20 MG PO BID for 4 Days, TAB Prov:HIRAM GOMEZ NP 11/02/16 Ondansetron Hcl* (Zofran*) 4 Mg Tablet, 4 MG PO Q6H for NAUSEA AND/OR VOMITING, #10 TAB Prov:HIRAM GOMEZ NP 11/02/16 Acetaminophen* (Tylophen*) 500 Mg Capsule, 1 CAP PO Q6H Y for PAIN AND OR ELEVATED TEMP, #30 CAP Prov:TATI SZYMANSKI PA-C 10/24/16 Omeprazole* (Omeprazole*) 20 Mg Capsule.dr, 20 MG PO DAILY, #14 Prov:TATI SZYMANSKI PA-C 10/24/16 Electrolyte,Oral (Pedialyte) 1,000 Ml Solution, 100 ML PO Q6 Y for VOMITTING, # 1000 ML Prov:TATI SZYMANSKI PA-C 10/24/16 Ondansetron Hcl* (Zofran*) 4 Mg Tablet, 4 MG PO Q6H for NAUSEA AND/OR VOMITING, #30 TAB Prov:TATI SZYMANSKI PA-C 10/24/16 Phenazopyridine Hcl* (Pyridium*) 100 Mg Tab, 100 MG PO TID Y for URINARY PAIN, # 8 TAB Prov:ROBBIN HONEYCUTT PA-C 07/03/16 Metformin* (Glucophage*) 500 Mg Tab, 500 MG PO BID, #30 TAB Prov:ROBBIN HONEYCUTT PA-C 07/03/16 Cephalexin* (Keflex*) 500 Mg Capsule, 500 MG PO TID for 7 Days, CAP Prov:ROBBIN HONEYCUTT PA-C 07/03/16 Nitrofurantoin Monohyd Macrocr* (Macrobid*) 100 Mg Capsr, 100 MG PO BID for 7 Days, CAP Prov:ROBBIN HONEYCUTT PA-C 03/12/16 Acetaminophen* (Tylenol*) 325 Mg Tablet, 2 TAB PO Q8 Y for PAIN AND OR ELEVATED TEMP, #20 TAB Prov:SHARDA CLARK PA-C 02/02/16 Amoxicillin* (Amoxicillin*) 500 Mg Cap, 500 MG PO TID for 7 Days, CAP Prov:SHARDA CLARK PA-C 02/02/16 Acetaminophen* (Tylophen*) 500 Mg Capsule, 1 CAP PO Q6H Y for PAIN AND OR ELEVATED TEMP, #30 CAP Prov:TATI SZYMANSKI PA-C 12/14/15 Neomycin/Polymyxin/Hydrocort* (Cortisporin* Otic) 10 Ml Susp, 4 DROP LEFT EAR QID for 7 Days, EA Prov:BHARATI CUELLAR PA-C 10/25/15 Amox Tr/Potassium Clavulanate (Amox Tr-K Clv 875-125 Mg Tab) 1 Tab Tablet, 1 TAB PO BID, #20 TAB Prov:BHARATI CUELLAR PA-C 10/25/15 Hydrocodone Bit-Acetaminophen* ([place]*) 5-325 Mg Tab, 1 TAB PO Q6 Y for PAIN, # 7 TAB Prov:ROBBIN HONEYCUTT PA-C 10/10/15 Sulfamethoxazole-Trimethoprim* (Bactrim* DS) 800-160 Mg Tab, 1 TAB PO BID for 5 Days, TAB Prov:ROBBIN HONEYCUTT PA-C 10/10/15 Cephalexin* (Keflex*) 500 Mg Capsule, 500 MG PO QID for 5 Days, CAP Prov:ROBBIN HONEYCUTT PA-C 10/10/15 Ciprofloxacin Hcl* (Ciprofloxacin Hcl*) 500 Mg Tablet, 500 MG PO BID for 3 Days , TAB Prov:ROBBIN HONEYCUTT PA-C 03/24/15 Phenazopyridine Hcl* (Pyridium*) 100 Mg Tab, 100 MG PO TID Y for PAIN, #8 TAB Prov:ROBBIN HONEYCUTT PA-C 03/24/15 Ibuprofen* (Motrin*) 800 Mg Tab, 800 MG PO Q6H Y for PAIN AND OR ELEVATED TEMP, #30 TAB Prov:CB RAMSEY NP 01/28/15 Doxycycline Hyclate* (Doxycycline Hyclate*) 100 Mg Tablet.dr, 100 MG PO BID for 7 Days, TAB Prov:GABI FOY NP 01/05/15 Clotrimazole* (Clotrimazole* AF) 1% - 30 Gm Cream.gm., 1 APPLIC TOP BID for 7 Days, TUB Prov:GABI FOY NP 01/05/15 Amoxicillin* (Amoxicillin*) 500 Mg Cap, 500 MG PO Q8 for 30 Days, CAP Prov:SMILEY DANGELO MD 10/26/14 Neomycin/Polymyxin/Hydrocort* (Cortisporin* Otic) 10 Ml Susp, 4 DROP RIGHT EAR QID for 7 Days, EA Prov:SMILEY DANGELO MD 10/26/14 Hydrocodone Bit-Acetaminophen* ([place]*) 5-325 Mg Tab, 1 TAB PO Q6 Y for PAIN, # 20 TAB Prov:SMILEY DANGELO MD 10/26/14 Allergies Allergies: Coded Allergies: naproxen (Unverified Allergy, Unknown, RASH, 07/03/16) PMhx/Soc History of Surgery: Yes (Removal of Ovarian Cyst) Anesthesia Reaction: No Hx Neurological Disorder: No Hx Respiratory Disorders: Yes (Asthma) Hx Cardiac Disorders: Yes (Preeclampsia x7 Years ago) Hx Psychiatric Problems: No Hx Miscellaneous Medical Probl: Yes (GESTATIONAL DIABETES) Hx Alcohol Use: No Hx Substance Use: No Hx Tobacco Use: No FmHx Family History: No coronary disease, No diabetes, No other Physical Exam Vitals Vital Signs Date Time Temp Pulse Resp B/P Pulse Ox O2 Delivery O2 Flow Rate FiO2 11/30/16 23:32 97.8 79 18 115/76 99 Physical Exam GENERAL: The patient is well developed and appropriate for usual state of health, in no apparent distress. HEENT: Atraumatic. Ears: Normal tympanic membrane, no erythema or bulging. No ear canal swelling. No ear discharge. Nose: normal nasal turbinates, no erythema or swelling. Normal nasal discharge. Throat: oropharynx clear. No tonsillar swelling or tonsillar exudates. No lymphadenopathy. CHEST: Clear to auscultation bilaterally. There are no rales, wheezes or rhonchi. HEART: Regular rate and rhythm. No murmurs, clicks, rubs or gallops. No S3 or S4. ABDOMEN: Soft, nontender and nondistended. Good bowel sounds. No rebound or guarding. No gross peritonitis. No gross organomegaly or masses. No Middleton sign or McBurney point tenderness. BACK: No midline or flank tenderness. EXTREMITIES: Equal pulses bilaterally. There is no peripheral clubbing, cyanosis or edema. No focal swelling or erythema. Full range of motion. Grossly neurovascularly intact. NEURO: Alert and oriented. Cranial nerves 2-12 intact. Motor strength in all 4 extremities with 5/5 strength. Sensation grossly intact. Normal speech and gait. positive Brooke-Hallpike exam. SKIN: There is no apparent rash or petechia. The skin is warm and dry. HEMATOLOGIC AND LYMPHATIC: There is no evidence of excessive bruising or lymphedema. No gross cervical, axillary, or inguinal lymphadenopathy. Result Diagram: 12/01/16 0303 12/01/16 0303 Results 24 hrs Laboratory Tests Test 12/01/16 03:03 White Blood Count 9.810^3/ul Red Blood Count 5.1810^6/ul Hemoglobin 14.7g/dl Hematocrit 43.2% Mean Corpuscular Volume 83.4fl Mean Corpuscular Hemoglobin 28.4pg Mean Corpuscular Hemoglobin Concent 34.0g/dl Red Cell Distribution Width 12.7% Platelet Count 31741^3/UL Mean Platelet Volume 11.4fl Neutrophils % 53.8% Lymphocytes % 36.6% Monocytes % 8.0% Eosinophils % 0.9% Basophils % 0.4% Nucleated Red Blood Cells % 0.0/100WBC Neutrophils # 5.210^3/ul Lymphocytes # 3.610^3/ul Monocytes # 0.810^3/ul Eosinophils # 0.110^3/ul Basophils # 0.010^3/ul Nucleated Red Blood Cells # 0.010^3/ul Urine Color STRAW Urine Clarity CLEAR Urine pH 6.0 Urine Specific Recluse 1.042 Urine Ketones TRACEmg/dL Urine Nitrite NEGATIVEmg/dL Urine Bilirubin NEGATIVEmg/dL Urine Urobilinogen NEGATIVEmg/dL Urine Leukocyte Esterase NEGATIVELeu/ul Urine Hemoglobin NEGATIVEmg/dL Urine Glucose 3+mg/dL Urine Total Protein NEGATIVEmg/dl Sodium Level 135mmol/L Potassium Level 3.7mmol/L Chloride Level 100mmol/L Carbon Dioxide Level 24mmol/L Anion Gap 15 Blood Urea Nitrogen 15mg/dl Creatinine 0.63mg/dl Glucose Level 371mg/dl Calcium Level 9.1mg/dl Total Bilirubin 0.2mg/dl Direct Bilirubin 0.00mg/dl Indirect Bilirubin 0.2mg/dl Aspartate Amino Transf (AST/SGOT) 20IU/L Alanine Aminotransferase (ALT/SGPT) 41IU/L Alkaline Phosphatase 114IU/L Total Protein 7.8g/dl Albumin 4.2g/dl Globulin 3.60g/dl Albumin/Globulin Ratio 1.16 Lipase 73U/L Current Medications Medications (Trade) Dose Ordered Sig/Isrrael Route PRN Reason Start Time Stop Time Status Last Admin Dose Admin Meclizine HCl (Antivert) 25 mg ONCE ONCE PO 12/01/16 03:00 12/01/16 03:01 DC 12/01/16 03:52 Meclizine was given here in emergency department to help with vertigo. PROCEDURE: CT BRAIN WITHOUT CONTRAST CLINICAL INDICATION: 31-year-old female with dizziness. TECHNIQUE: The study was performed utilizing a [employer] VCT 64-slice CT scanner. Direct axial sections were obtained from the foramen magnum to the vertex without the use of intravenous contrast material. Sagittal and coronal reformations were obtained. One or more the following dose reduction techniques were utilized: automated exposure control, adjustment of the mA and/or kV according to patient's size or use of iterative reconstruction technique. The images were viewed on a PACS workstation. CTD/vol = 45.0 mGy; Total Exam DLP = 720.2 mGy-cm. COMPARISON: CT mastoid April 11, 2014. FINDINGS: The ventricles have a normal size, shape and position. There is no evidence for mass effect or midline shift. There is prominent calcification along the anterior falx. There is no evidence for acute intra or extra-axial blood. The bony calvarium is intact. There is polypoid mucosal thickening within the inferior right maxillary sinus. No air-fluid levels are noted. There is mild soft tissue within the right mastoid air cells. The middle ears and left mastoid air cells are without significant abnormal soft tissue bilaterally. IMPRESSION: 1. The intracranial contents are unremarkable on this noncontrast CT scan of the brain. 2. Mild right mastoid disease. .Ernie Hogue MD, MD Date Time Electronically viewed and signed by .Ernie Hogue MD, MD on 12/01/2016 04:04 .M/ CC: ALBINO MONTELONGO FOOD SERVICE DIRECTOR Procedures/MDM Medical Decision Making: Patient's pain is most likely consistent with a back strain. There is no suspicion for neurovascular compromise. Patient has intact sensation and circulation of the affected extremity and distal extremities. No incontinence, no suspicion for cauda equina syndrome, no saddle anesthesia, no symptoms of any acute bacterial infection, no symptoms of any perirectal abscesses, pilonidal cyst.There is low suspicion for septic arthritis. Patient does not have any fever. No symptoms of any aortic dissection or aortic aneurysm. Radiology exam not indicated at this time. Pt vertigo symptoms is consistent with a sinus this is causing some inflammation in the right mastoid causing vertigo.There is low suspicion for neurological emergencies at this time since patients neurologic exam is normal. Patient did not have any altered level consciousness, vomiting, changes in balance or memory after incident. Patients CT scan of the head does not show any neurological emergencies at this time. Disposition: Home. Patient is given prescription for Tylenol [place] for severe pain, Flexeril for muscle spasm,Meclizine, Augmentin . Patient was advised to avoid heavy lifting , apply warm compresses on affected area. Patient was advised that if symptoms are worse, numbness, tingling, high fever, unable to move joint, worsening symptoms, to return to emergency department immediately. Otherwise, patient is advised to follow up with the primary care doctor in 5-7 days for reevaluation of symptoms. Disclaimer: Inadvertent spelling and grammatical errors are likely due to EHR/ dictation software use and do not reflect on the overall quality of patient care. Also, please note that the electronic time recorded on this note does not necessarily reflect the actual time of the patient encounter. Departure Diagnosis: Primary Impression: BPPV (benign paroxysmal positional vertigo) Laterality: right Qualified Code: H81.11 - Benign paroxysmal positional vertigo of right ear Additional Impressions: Sinusitis Sinusitis location: maxillary Chronicity: acute Recurrence: non-recurrent Qualified Code: J01.00 - Acute non-recurrent maxillary sinusitis Back pain Back pain location: low back pain Chronicity: acute Back pain laterality: bilateral Sciatica presence: without sciatica Qualified Code: M54.5 - Acute bilateral low back pain without sciatica Condition: Stable Patient Instructions: Acute Sinusitis, Back Pain (Acute Or Chronic), Benign Positional Vertigo ALBINO MONTELONGO NP Dec 01, 2016 03:28
[2016-12-01 03:54] LABS: BASOPHILS % 0.4 % (0.0-2.0); EOSINOPHILS # 0.1 10^3/ul (0.0-0.5); EOSINOPHILS % 0.9 % (0.0-7.0); HEMATOCRIT 43.2 % (37.0-47.0); HEMOGLOBIN 14.7 g/dl (12.0-16.0); LYMPHOCYTES # 3.6 10^3/ul (0.8-2.9); LYMPHOCYTES % 36.6 % (15.0-51.0); MEAN CORPUSCULAR HEMOGLOBIN 28.4 pg (29.0-33.0); MEAN CORPUSCULAR VOLUME 83.4 fl (82.0-101.0); MEAN PLATELET VOLUME 11.4 fl (7.4-10.4); MONOCYTE # 0.8 10^3/ul (0.3-0.9); NEUTROPHIL # 5.2 10^3/ul (1.6-7.5); NEUTROPHILS % 53.8 % (39.0-77.0); PLATELET COUNT 305 10^3/UL (140-415); RED BLOOD COUNT 5.18 10^6/ul (4.20-5.40); RED CELL DISTRIBUTION WIDTH 12.7 % (11.5-14.5); WHITE BLOOD COUNT 9.8 10^3/ul (4.8-10.8)
[2016-12-01 04:05] LABS: ADD UMIC NO; UR ASCORBIC ACID NEGATIVE (NEGATIVE); UR BILIRUBIN (Dip) NEGATIVE (NEGATIVE); UR BLOOD (Dip) NEGATIVE (NEGATIVE); UR CLARITY CLEAR (CLEAR); UR COLOR STRAW (YELLOW); UR GLUCOSE (Dip) 3+ mg/dL (NEGATIVE); UR KETONES (Dip) TRACE mg/dL (NEGATIVE); UR LEUKOCYTE ESTERASE (Dip) NEGATIVE Leu/ul (NEGATIVE); UR NITRITE (Dip) NEGATIVE (NEGATIVE); UR SPECIFIC GRAVITY (Dip) 1.042 (1.003-1.030); UR TOTAL PROTEIN (Dip) NEGATIVE (NEGATIVE); UR UROBILINOGEN (Dip) NEGATIVE (NEGATIVE)
--- NOTE | 2016-12-01 04:05 | RADRPT ---
PROCEDURE: CT BRAIN WITHOUT CONTRAST CLINICAL INDICATION: 31-year-old female with dizziness. TECHNIQUE: The study was performed utilizing a [employer] VCT 64-slice CT scanner. Direct axia l sections were obtained from the foramen magnum to the vertex without the use of intravenous contra st material. Sagittal and coronal reformations were obtained. One or more the following dose reduct ion techniques were utilized: automated exposure control, adjustment of the mA and/or kV according t o patient's size or use of iterative reconstruction technique. The images were viewed on a PACS Patient Engagement Systems. CTD/vol = 45.0 mGy; Total Exam DLP = 720.2 mGy-cm. COMPARISON: CT mastoid April 11, 2014. FINDINGS: The ventricles have a normal size, shape and position. There is no evidence for mass effect or midl ine shift. There is prominent calcification along the anterior falx. There is no evidence for acut e intra or extra-axial blood. The bony calvarium is intact. There is polypoid mucosal thickening wit hin the inferior right maxillary sinus. No air-fluid levels are noted. There is mild soft tissue wit hin the right mastoid air cells. The middle ears and left mastoid air cells are without significant abnormal soft tissue bilaterally. IMPRESSION: 1. The intracranial contents are unremarkable on this noncontrast CT scan of the brain. 2. Mild right mastoid disease. .Ernie Hogue MD, Date Time Electronically viewed and signed by .Ernie Hogue MD, on 12/01/2016 04:04 .Yolanda/
[2016-12-01 04:19] LABS: ALBUMIN 4.2 g/dl (3.3-4.9); ALBUMIN/GLOBULIN RATIO 1.16; BILIRUBIN,INDIRECT 0.2 mg/dl (0-1.1); BILIRUBIN,TOTAL 0.2 mg/dl (0.2-1.3); CALCIUM 9.1 mg/dl (8.4-10.2); CREATININE 0.63 mg/dl (0.44-1.00); POTASSIUM 3.7 mmol/L (3.5-5.1); TOTAL PROTEIN 7.8 g/dl (6.1-8.1)
[2016-12-01] MEDS ORDERED: CYCL-319 PO (04:40)
[2016-12-01] MEDS ORDERED: HYDR-906 PO (04:40)
[2016-12-01] MEDS ORDERED: ACET500C5 PO (04:40)
[2016-12-01] MEDS ORDERED: AMOX1TAB10 PO (04:40)
[2016-12-01 05:17] VITALS: BP 117/76; PULSE 85; RESP 16
== END 2016-12-01 05:18 | disposition home or self-care (01) ==
LOC: FTE 23:19
DX: H81.11 Benign paroxysmal vertigo, right ear (principal); J01.00 Acute maxillary sinusitis, unspecified; J45.909 Unspecified asthma, uncomplicated
CPT/HCPCS: 36415; 70450; 80053; 81003; 83690; 85025; Z7502; Z7610

== ENCOUNTER 2017-04-02 09:50 | Emergency (ER) | END 2017-04-02 12:58 | disposition home or self-care (01) ==